=== PATIENT | female | born 1970 ===

== ENCOUNTER 2017-04-02 12:53 | Emergency (ER) | payer MEDICARE, MEDICAID ==
[2017-04-02 13:02] VITALS: BMI 39.4
[2017-04-02 13:06] VITALS: TEMP 98.2; O2SAT 98
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
--- NOTE | 2017-04-02 14:33 | RAD ---
PROCEDURE: Radiographs of the Lumbar Spine. HISTORY: back pain COMPARISON: No prior. FINDINGS: BONES: Chronic degenerative changes are seen in the superior end plate of L3 and L4. DISC SPACES: Disc space narrowing at L4-5 and L5-S1 with mild facet arthropathy OTHER FINDINGS: None. IMPRESSION: Mild degenerative changes. No acute findings
[2017-04-02 15:07] VITALS: BP 122/79; PULSE 67; RESP 18
== END 2017-04-02 15:10 | disposition home or self-care (01) ==
LOC: ED 12:53
DX: M54.9 Dorsalgia, unspecified (principal)
CPT/HCPCS: 72110; 96372; 99282; J1885

== ENCOUNTER 2017-06-29 12:21 | Emergency (ER) | payer OTHER ==
[2017-06-29 12:22] VITALS: BMI 39.4
[2017-06-29 13:56] VITALS: O2SAT 98
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
[2017-06-29 14:44] VITALS: BP 122/82; PULSE 70; RESP 16; TEMP 97.9
== END 2017-06-29 14:42 | disposition home or self-care (01) ==
LOC: ED 12:21
DX: M54.5 Low back pain (principal); I10 Essential (primary) hypertension; E03.9 Hypothyroidism, unspecified; Z88.0 Allergy status to penicillin

== ENCOUNTER 2017-07-14 08:33 | Emergency (ER) | payer MEDICARE, OTHER ==
[2017-07-14 08:33] VITALS: BMI 39.4
[2017-07-14 08:45] VITALS: BP 127/89; PULSE 82; RESP 16; TEMP 98; O2SAT 96
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
== END 2017-07-14 09:24 | disposition home or self-care (01) ==
LOC: ED 08:33
DX: S39.012A Strain of muscle, fascia and tendon of lower back, initial encounter (principal); X58.XXXA Exposure to other specified factors, initial encounter; I10 Essential (primary) hypertension; E03.9 Hypothyroidism, unspecified; Z88.0 Allergy status to penicillin
CPT/HCPCS: 96372; 99283; J1885

== ENCOUNTER 2017-12-27 12:14 | Emergency (ER) | payer MEDICARE, OTHER ==
[2017-12-27 12:22] VITALS: BMI 37.8
[2017-12-27] MEDS ORDERED: Albuterol-Ipratrop 3 mg / 0.5 (3 ml) UD IH STA (13:09)
--- NOTE | 2017-12-27 13:17 | ED PDOC ---
Arrival/HPI - General Chief Complaint: Respiratory Distress Time Seen by Provider: 12/27/17 12:30 Historian: Patient - History of Present Illness Narrative History of Present Illness (Text): you were treated in the ED today for having bronchitis like symptoms with nasal congestion, on prednisone/azithromycin day 4, but w persistent cough with associated difficulty breathing with cough but otherwise without any nausea/ vomiting/headache/dizziness/chest pain/abdomen pain/numbness/tingling/loss of limb function/pain with urination. Past Medical History - Provider Review Nursing Documentation Reviewed: Yes - Travel History Have you recently traveled outside [place] w/in the past 3 mons?: No - Infectious Disease Hx of Infectious Diseases: None - Cardiac Hx Cardiac Arrhythmia: Yes (Prolong QT) Hx Hypertension: Yes - Pulmonary Hx Asthma: Yes (LAST ATTACK LAST YEAR) Hx Bronchitis: Yes Hx Sleep Apnea: Yes - Neurological Hx Migraine: Yes - HEENT Hx HEENT Disorder: No - Renal Hx Renal Disorder: Yes Hx Kidney Stones: Yes - Endocrine/Metabolic Hx Hypothyroidism: Yes - Hematological/Oncological Hx Anemia: Yes - Integumentary Hx Dermatological Disorder: No - Musculoskeletal/Rheumatological Hx Arthritis: Yes Hx Fractures: Yes Hx Osteoporosis: Yes - Gastrointestinal Hx Gastritis: Yes - Genitourinary/Gynecological Hx Genitourinary Disorders: No - Psychiatric Hx Anxiety: Yes Hx Bipolar Disorder: Yes Hx Depression: Yes Hx Post Traumatic Stress Disorder: Yes Hx Substance Use: No - Surgical History Hx Tonsillectomy: Yes - Anesthesia Hx Anesthesia: Yes Hx Anesthesia Reactions: No Hx Malignant Hyperthermia: No - Suicidal Assessment Feels Threatened In Home Enviroment: No Family/Social History - Physician Review Nursing Documentation Reviewed: Yes Family/Social History: No Known Family HX Smoking Status: Never Smoked Hx Alcohol Use: No Hx Substance Use: No Allergies/Home Meds Allergies/Adverse Reactions: Allergies latex Allergy (Verified 12/27/17 12:16) RASH Penicillins Allergy (Verified 12/27/17 12:16) SWELLING Home Medications: Home Meds Medication Instructions Recorded Confirmed Gabapentin [Neurontin] 800 mg PO Q6 02/05/17 12/27/17 Levothyroxine [Synthroid] 225 mcg PO DAILY 02/05/17 12/27/17 Review of Systems - Review of Systems Constitutional: Normal Eyes: Normal ENT: Sinus Congestion Respiratory: SOB, Cough Cardiovascular: Normal Gastrointestinal: Normal Genitourinary Female: Normal Musculoskeletal: Normal Skin: Normal Neurological: Normal Endocrine: Normal Hemo/Lymphatic: Normal Psychiatric: Normal Physical Exam Vital Signs Reviewed: Yes Vital Signs Temp Pulse Resp BP Pulse Ox 12/27/17 12:20 99.6 F 94 H 17 141/95 H 99 Temperature: Afebrile Blood Pressure: Hypertensive Pulse: Regular Respiratory Rate: Normal Appearance: Positive for: Well-Appearing, Non-Toxic, Comfortable Pain Distress: None Mental Status: Positive for: Alert and Oriented X 3 - Systems Exam Head: Present: Atraumatic, Normocephalic Pupils: Present: PERRL Extroacular Muscles: Present: EOMI Conjunctiva: Present: Normal Ears: Present: Normal Mouth: Present: Moist Mucous Membranes Pharnyx: Present: Normal Nose (External): Present: Atraumatic Nose (Internal): Present: Boggy Neck: Present: Normal Range of Motion Respiratory/Chest: Present: Clear to Auscultation, Good Air Exchange Cardiovascular: Present: Regular Rate and Rhythm Abdomen: No: Tenderness, Distention, Normal Bowel Sounds, Peritoneal Signs, Rebound, Guarding, McBurney's Point Tender, Rovsing's Sign Present, Hernias, Feeding Tubes, Ostomy Tubes, Mass/Organomegaly, Scars, Other Back: Present: Normal Inspection Upper Extremity: Present: Normal Inspection Lower Extremity: Present: Normal Inspection Neurological: Present: GCS=15, CN II-XII Intact, Speech Normal, Motor Func Grossly Intact Skin: Present: Warm, Normal Color Psychiatric: Present: Alert, Oriented x 3, Normal Insight, Normal Concentration Medical Decision Making ED Course and Treatment: you were treated in the ED today for having bronchitis like symptoms with nasal congestion, on prednisone/azithromycin day 4, but w persistent cough with associated difficulty breathing with cough but otherwise without any nausea/ vomiting/headache/dizziness/chest pain/abdomen pain/numbness/tingling/loss of limb function/pain with urination/no thoughts to harm yourself or others or hallucinations/recent travel/prior blood clots/prior cancer/hormonal use. You were otherwise breathing easily, smiling and talking easily, good strength/ sensation, walking easily, clear lungs, no abdomen tenderness, nasal congestion , no fever temp 99.6, stable heart rate 94, stable breathing rate 17, excellent oxygen level 99% room air, elevated blood pressure 141/95 which we recommend repeat in 2-3 days primary care office to determine further treatment, urine test you stated total hysterectomy, influenza test negative, radiology chest xray Poor inspiration with low lung volumes, crowded bronchovascular markings and mild bibasilar atelectasis, motrin, duoneb, prednisone, observation done in the ED with improvement, had a long discussion and you refused lab tests/ECG/further observation in the ED and cautioned for complications but you stated you feel improved and came for treatment and will followup primary care, counselled to use humidified air daily and thus discharged home. 1. Recommend additional prednisone as directed for breathing relief. recommend inhaler treatments as directed. 2. Recommend follow-up primary care 2-3 days to review symptoms. 4. If any worsening pain, fever, chills, nausea, vomiting, difficulty breathing, numbness, loss of limb function , pain with urination or any medical condition then return to the ED. 12/27/17 14:18 Chest X-ray Television Schedule Coordinator : DR. Combs, Robbie GUTIERREZ HISTORY:47-year-old female with cough. COMPARISON:No prior studies available for comparison TECHNIQUE:Chest PA and lateral FINDINGS: LUNGS:Poor inspiration with low lung volumes, crowded bronchovascular markings and mild bibasilar atelectasis PLEURA:No significant pleural effusion identified. No pneumothorax apparent. CARDIOVASCULAR:Normal. OSSEOUS STRUCTURES:No significant abnormalities. VISUALIZED UPPER ABDOMEN:Normal. OTHER FINDINGS:None. IMPRESSION: Poor inspiration with low lung volumes, crowded bronchovascular markings and mild bibasilar atelectasis 12/27/17 14:26 12/27/17 14:35 Reassessment Condition: Re-examined, Improved - Lab Interpretations Lab Results: Lab Results 12/27/17 13:30: Influenza Typ A,B (EIA) Negative for flu a/b I have reviewed the lab results: Yes - RAD Interpretation Radiology Orders: 12/27/17 13:10 CHEST TWO VIEWS (PA/LAT) [RAD] Stat Senior Administrative Assistant: Radiologist (see mdm) - Medication Orders Current Medication Orders: Discontinued Medications Albuterol/Ipratropium (Duoneb 3 Mg/0.5 Mg (3 Ml) Ud) 3 ml IH STAT STA Stop: 12/27/17 13:10 Last Admin: 12/27/17 13:26 Dose: 3 ml Ibuprofen (Motrin Tab) 800 mg PO STAT STA Stop: 12/27/17 13:10 Last Admin: 12/27/17 13:26 Dose: 800 mg MAR Pain/Vitals Document 12/27/17 13:26 VIVIEN (Rec: 12/27/17 13:26 VIVIEN [id number]) Pain Reassessment Is This A Pain ReAssessment? No Sleep Is patient sleeping during reassessment? No Prednisone (Prednisone Tab) 60 mg PO STAT ONE Stop: 12/27/17 13:10 Last Admin: 12/27/17 13:26 Dose: 60 mg - Scribe Statement The provider has reviewed the documentation as recorded by the Deanna Gu Provider Scribe Attestation: All medical record entries made by the Scribe were at my direction and personally dictated by me. I have reviewed the chart and agree that the record accurately reflects my personal performance of the history, physical exam, medical decision making, and the department course for this patient. I have also personally directed, reviewed, and agree with the discharge instructions and disposition. Disposition/Present on Arrival - Present on Arrival Any Indicators Present on Arrival: No History of DVT/PE: No History of Uncontrolled Diabetes: No Urinary Catheter: No History of Decub. Ulcer: No History Surgical Site Infection Following: None - Disposition Have Diagnosis and Disposition been Completed?: Yes Diagnosis: Upper respiratory disease, Bronchitis Disposition: HOME/ ROUTINE Disposition Time: 14:28 Patient Plan: Discharge Condition: IMPROVED Discharge Instructions (ExitCare): Acute Bronchitis, Adult (DC) Additional Instructions: you were treated in the ED today for having bronchitis like symptoms with nasal congestion, on prednisone/azithromycin day 4, but w persistent cough with associated difficulty breathing with cough but otherwise without any nausea/ vomiting/headache/dizziness/chest pain/abdomen pain/numbness/tingling/loss of limb function/pain with urination/no thoughts to harm yourself or others or hallucinations/recent travel/prior blood clots/prior cancer/hormonal use. You were otherwise breathing easily, smiling and talking easily, good strength/ sensation, walking easily, clear lungs, no abdomen tenderness, nasal congestion , no fever temp 99.6, stable heart rate 94, stable breathing rate 17, excellent oxygen level 99% room air, elevated blood pressure 141/95 which we recommend repeat in 2-3 days primary care office to determine further treatment, urine test you stated total hysterectomy, influenza test negative, radiology chest xray Poor inspiration with low lung volumes, crowded bronchovascular markings and mild bibasilar atelectasis, motrin, duoneb, prednisone, observation done in the ED with improvement, had a long discussion and you refused lab tests/ECG/further observation in the ED and cautioned for complications but you stated you feel improved and came for treatment and will followup primary care, counselled to use humidified air daily and thus discharged home. 1. Recommend additional prednisone as directed for breathing relief. recommend inhaler treatments as directed. 2. Recommend follow-up primary care 2-3 days to review symptoms. 4. If any worsening pain, fever, chills, nausea, vomiting, difficulty breathing, numbness, loss of limb function , pain with urination or any medical condition then return to the ED. Prescriptions: Albuterol HFA [Ventolin HFA 90 mcg/actuation (8 g)] 2 puff IH [id number] PRN 5 Days #1 ea PRN Reason: breathing relief Fluticasone Nasal [Flonase] 1 spr NS DAILY PRN 5 Days #1 ea PRN Reason: nasal congestion relief predniSONE [Prednisone] See Taper PO DAILY #5 tab Referrals: Miladys Lawson MD [Primary Care Provider] - Follow up with primary Forms: [employer] (Hong Konger)
--- NOTE | 2017-12-27 14:10 | RAD ---
HISTORY: 47-year-old female with cough. COMPARISON: No prior studies available for comparison TECHNIQUE: Chest PA and lateral FINDINGS: LUNGS: Poor inspiration with low lung volumes, crowded bronchovascular markings and mild bibasilar atelectasis PLEURA: No significant pleural effusion identified. No pneumothorax apparent. CARDIOVASCULAR: Normal. OSSEOUS STRUCTURES: No significant abnormalities. VISUALIZED UPPER ABDOMEN: Normal. OTHER FINDINGS: None. IMPRESSION: Poor inspiration with low lung volumes, crowded bronchovascular markings and mild bibasilar atelectasis
[2017-12-27 14:31] VITALS: PULSE 78; RESP 18
[2017-12-27 14:55] VITALS: BP 132/79; TEMP 98.2; O2SAT 99
== END 2017-12-27 14:54 | disposition home or self-care (01) ==
LOC: ED 12:14
DX: J40 Bronchitis, not specified as acute or chronic (principal); J39.9 Disease of upper respiratory tract, unspecified

== ENCOUNTER 2018-03-31 16:36 | Emergency (ER) | payer MEDICARE, OTHER ==
[2018-03-31 16:36] VITALS: BMI 37.8
[2018-03-31] MEDS ORDERED: Lidocaine 5% Patch TD ONE (17:43)
[2018-03-31 17:47] VITALS: TEMP 99.3
[2018-03-31] MEDS ORDERED: Oxycodone/Acetaminophen 5/325 mg Tab PO STA (18:14)
--- NOTE | 2018-03-31 18:24 | ED PDOC ---
Arrival/HPI - General Chief Complaint: Back Pain Time Seen by Provider: 03/31/18 17:32 - History of Present Illness Narrative History of Present Illness (Text): 03/31/18 18:15 47 y/o F w/ h/o herniated disks and peripheral neuropathy presenting to the ED for persistent lower back pain. The patient states she fell on her back 2 days ago after chasing her dog. She lumbarsacral back pain worsened with movement and direct pressure. She reports worsening of the back pain with ambulation and minor relief after use of her gabapentin and flexaril. The patient states she had back pain like this before and reports this is worse in severity in comparison to previous episodes. The patient states she has a epidural procedure tomorrow. She denies chest pain, headache, nausea, emesis, fevers, chills, abdominal pain, weakness, numbness or tingling. Past Medical History - Provider Review Nursing Documentation Reviewed: Yes - Travel History Have you recently traveled outside [place] w/in the past 3 mons?: No - Infectious Disease Hx of Infectious Diseases: None - Reproductive Menopause: Yes - Cardiac Hx Cardiac Arrhythmia: Yes (Prolong QT) Hx Hypertension: Yes - Pulmonary Hx Asthma: Yes (LAST ATTACK LAST YEAR) Hx Bronchitis: Yes Hx Sleep Apnea: Yes - Neurological Hx Migraine: Yes - HEENT Hx HEENT Disorder: No - Renal Hx Renal Disorder: Yes Hx Kidney Stones: Yes - Endocrine/Metabolic Hx Hypothyroidism: Yes - Hematological/Oncological Hx Anemia: Yes - Integumentary Hx Dermatological Disorder: No - Musculoskeletal/Rheumatological Hx Arthritis: Yes Hx Back Pain: Yes Hx Fractures: Yes Hx Osteoporosis: Yes - Gastrointestinal Hx Gastritis: Yes - Genitourinary/Gynecological Hx Genitourinary Disorders: No - Psychiatric Hx Anxiety: Yes Hx Bipolar Disorder: Yes Hx Depression: Yes Hx Post Traumatic Stress Disorder: Yes Hx Substance Use: No - Surgical History Hx Tonsillectomy: Yes - Anesthesia Hx Anesthesia: Yes Hx Anesthesia Reactions: No Hx Malignant Hyperthermia: No - Suicidal Assessment Feels Threatened In Home Enviroment: No Family/Social History - Physician Review Nursing Documentation Reviewed: Yes Family/Social History: Unknown Family HX Smoking Status: Never Smoked Hx Alcohol Use: No Hx Substance Use: No Allergies/Home Meds Allergies/Adverse Reactions: Allergies latex Allergy (Verified 12/27/17 12:16) RASH Penicillins Allergy (Verified 12/27/17 12:16) SWELLING Home Medications: Home Meds Medication Instructions Recorded Confirmed Gabapentin [Neurontin] 800 mg PO Q6 02/05/17 03/31/18 Levothyroxine [Synthroid] 250 mcg PO DAILY 02/05/17 03/31/18 Albuterol HFA [Ventolin HFA 90 200 puff IH PRN PRN 03/31/18 03/31/18 mcg/actuation (8 g)] Fluticasone/Salmeterol 500/50 0 puff NEB DAILY 03/31/18 03/31/18 [Advair Diskus 500/50] Review of Systems - Physician Review All systems were reviewed & negative as marked: Yes - Review of Systems Musculoskeletal: Back Pain, Myalgias. absent: Neck Pain Physical Exam Vital Signs Temp Pulse Resp BP Pulse Ox 03/31/18 19:35 89 18 137/69 99 03/31/18 16:53 99.3 F 98 H 20 142/85 98 03/31/18 16:37 99.3 F 98 H 20 142/85 98 Temperature: Afebrile Blood Pressure: Normal Pulse: Regular Respiratory Rate: Normal Appearance: Positive for: Well-Appearing, Non-Toxic, Comfortable Pain Distress: Severe Mental Status: Positive for: Alert and Oriented X 3 - Systems Exam Head: Present: Atraumatic, Normocephalic Pupils: Present: PERRL Mouth: Present: Moist Mucous Membranes Neck: Present: Normal Range of Motion. No: Meningeal Signs, MIDLINE TENDERNESS Respiratory/Chest: Present: Clear to Auscultation, Good Air Exchange. No: Respiratory Distress Cardiovascular: Present: Regular Rate and Rhythm, Normal S1, S2 Abdomen: Present: Normal Bowel Sounds. No: Tenderness, Distention, Peritoneal Signs Back: Present: Midline Tenderness, Paraspinal Tenderness (pain wih palpation lumbosacral region). No: CVA Tenderness, Decubitus Ulcer Neurological: Present: GCS=15, CN II-XII Intact, Speech Normal, Gait Normal Medical Decision Making ED Course and Treatment: 03/31/18 19:30 Impression 47 y/o F w/ h/o osteoarthritis and herniated disks presenting with lower back pain Plan --Valium --Percocet --Reassess & disposition Progress Notes 03/31/18 19:32 Patient reassessed and feels complete resolution of symptoms. She is able to ambulate without difficulty. Scripts given. She will follow up with her PCP after her surgery tomorrow. She is ambulatory without assistance. She is stable for discharge. - Medication Orders Current Medication Orders: Discontinued Medications Diazepam (Valium) 5 mg PO ONCE ONE PRN Reason: Protocol Stop: 03/31/18 18:15 Last Admin: 03/31/18 18:49 Dose: 5 mg Lidocaine (Lidoderm) 1 ea TD ONCE ONE Stop: 04/01/18 17:44 Oxycodone/Acetaminophen (Percocet 5/325 Mg Tab) 1 tab PO STAT STA Stop: 03/31/18 18:15 Last Admin: 03/31/18 18:49 Dose: 1 tab MAR Pain Assessment Document 03/31/18 18:49 SRE (Rec: 03/31/18 18:49 SRE [id number]) Pain Reassessment Is this a pain reassessment? Yes Sleep Is patient sleeping during reassessment? No Presence of Pain Presence of Pain Yes Pain Scale Used Pain Scale Used Numeric Location Pain Location Body Site Back Disposition/Present on Arrival - Present on Arrival Any Indicators Present on Arrival: No History of DVT/PE: No History of Uncontrolled Diabetes: No Urinary Catheter: No History of Decub. Ulcer: No History Surgical Site Infection Following: None - Disposition Have Diagnosis and Disposition been Completed?: Yes Diagnosis: Back pain Disposition: HOME/ ROUTINE Disposition Time: 19:28 Patient Plan: Discharge Condition: IMPROVED Discharge Instructions (ExitCare): Upper Back Pain (DC) Prescriptions: oxyCODONE/Acetaminophen [Percocet 5/325 mg Tab] 1 ea PO PRN PRN 3 Days #4 tab PRN Reason: Pain, Severe (8-10) Forms: [employer] (Uzbek)
[2018-03-31 19:36] VITALS: BP 137/69; PULSE 89; RESP 18; O2SAT 99
[2018-04-01] MEDS ORDERED: Lidocaine 5% Patch TD ONE (17:43)
== END 2018-03-31 19:35 | disposition home or self-care (01) ==
LOC: ED 16:36
DX: M54.5 Low back pain (principal); I10 Essential (primary) hypertension; E03.9 Hypothyroidism, unspecified; M81.0 Age-related osteoporosis without current pathological fracture

== ENCOUNTER 2018-05-08 07:53 | Day surgery (SDC) | payer MEDICARE, OTHER ==
[2018-05-08 08:27] VITALS: RESP 16
[2018-05-08] MEDS ORDERED: Propofol 10 mg/ml Inj (20 ML) ONE (08:52)
[2018-05-08] MEDS ORDERED: Sodium Chloride 0.9% 1,000 ML IV SCH (09:30)
[2018-05-08 12:08] VITALS: BP 101/72; PULSE 66; TEMP 97.7; O2SAT 99
== END 2018-05-08 10:50 | disposition home or self-care (01) ==
LOC: ENDO 07:53
PROVIDERS: ATTEND Internal Medicine Gastroenterology
DX: R13.10 Dysphagia, unspecified (principal); K29.70 Gastritis, unspecified, without bleeding
CPT/HCPCS: 43239; 88305; 88342; J2001; J2704; J7030; J7040

== ENCOUNTER 2018-05-22 08:59 | Day surgery (SDC) | payer MEDICARE, OTHER ==
[2018-05-22] MEDS ORDERED: Propofol 10 mg/ml Inj (20 ML) ONE (09:42)
[2018-05-22] MEDS ORDERED: Midazolam 2 MG/2 ML VIAL ONE (09:54)
[2018-05-22] MEDS ORDERED: Sodium Chloride 0.9% 1,000 ML IV SCH (10:45)
[2018-05-22 11:25] VITALS: RESP 16; TEMP 97.6; O2SAT 96
[2018-05-22 13:51] VITALS: BP 119/74; PULSE 65
== END 2018-05-22 12:35 | disposition home or self-care (01) ==
LOC: ENDO 08:59
PROVIDERS: ATTEND Internal Medicine Gastroenterology
DX: R13.10 Dysphagia, unspecified (principal); D12.0 Benign neoplasm of cecum; D12.5 Benign neoplasm of sigmoid colon; D12.3 Benign neoplasm of transverse colon; K57.30 Diverticulosis of large intestine without perforation or abscess without bleeding; K64.1 Second degree hemorrhoids; E03.9 Hypothyroidism, unspecified; E66.9 Obesity, unspecified; Z68.39 Body mass index [BMI] 39.0-39.9, adult; G47.30 Sleep apnea, unspecified; J44.9 Chronic obstructive pulmonary disease, unspecified; K59.00 Constipation, unspecified; Z87.891 Personal history of nicotine dependence; Z88.0 Allergy status to penicillin; Z91.040 Latex allergy status
CPT/HCPCS: 45380; 88305; J2001; J2250; J2704; J7030; J7040

== ENCOUNTER 2018-10-23 07:10 | Emergency (ER) | payer MEDICARE, OTHER ==
[2018-10-23 07:10] VITALS: BMI 37.8
[2018-10-23] MEDS ORDERED: Lidocaine 5% Patch TD STA (07:28)
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
[2018-10-23 09:27] VITALS: BP 112/62; PULSE 79; RESP 16; O2SAT 99
[2018-10-23 09:29] VITALS: TEMP 97.8
== END 2018-10-23 09:28 | disposition home or self-care (01) ==
LOC: ED 07:10
DX: M54.5 Low back pain (principal); G62.9 Polyneuropathy, unspecified; G47.30 Sleep apnea, unspecified; E03.9 Hypothyroidism, unspecified
CPT/HCPCS: 96372; 99283; J1885

== ENCOUNTER 2018-12-16 10:53 | Outpatient (CLI) | payer MEDICARE, OTHER | END 2018-12-16 10:54 | disposition home or self-care (01) | LOC: HLTHCOUN 10:53 ==

== ENCOUNTER 2018-12-20 18:11 | Emergency (ER) | payer MEDICARE, OTHER ==
[2018-12-20 18:32] VITALS: RESP 18; TEMP 99.5; O2SAT 100; BMI 37.5
[2018-12-20] MEDS ORDERED: Sodium Chloride 0.9% 1,000 ML IV STA (18:37)
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
[2018-12-20 19:18] LABS: ALB/GLOB RATIO 1.2 (1.1-1.8); ALBUMIN 4.4 g/dL (3.0-4.8); ALT/SGPT 17 U/L (7-56); AST/SGOT 17 U/L (14-36); BLOOD UREA NITROGEN 17 mg/dL (7-21); CALCIUM 9.3 mg/dL (8.4-10.5); GFR NON-AFRICAN AMERICAN > 60; LIPASE 89 U/L (23-300)
[2018-12-20 19:23] LABS: BASO # 0.01 K/mm3 (0.0-2.0); BASO % 0.1 % (0.0-3.0); EOS % 0.1 % (1.5-5.0); HEMOGLOBIN 15.3 g/dL (12.0-16.0); LYMPH # 0.8 (1.2-3.4); LYMPH % 9.7 % (22.0-35.0); MEAN CELL VOLUME 82.4 fl (80.0-105.0); MEAN CORPUSCULAR HEMOGLOBIN 28.3 pg (25.0-35.0); MEAN CORPUSCULAR HGB CONC 34.4 g/dl (31.0-37.0); MONO # 0.5 (0.1-0.6); MONO % 5.8 % (1.0-6.0); RBC 5.4 10^6/uL (3.5-6.1); RED CELL DISTRIBUTION WIDTH 13.3 % (11.5-14.5); WHITE BLOOD COUNT 8.2 10^3/uL (4.5-11.0)
[2018-12-20 19:33] VITALS: BP 115/71; PULSE 95
[2018-12-20 19:33] LABS: URINE BILIRUBIN NEGATIVE (NEGATIVE); URINE BLOOD SMALL (NEGATIVE); URINE GLUCOSE (UA) NEGATIVE (NEGATIVE); URINE LEUKOCYTE ESTERASE NEGATIVE Leu/uL (NEGATIVE); URINE PROTEIN NEGATIVE mg/dL (<30 mg/dL); URINE UROBILINOGEN 0.2 E.U./dL (<1 E.U./dL)
[2018-12-20 19:34] LABS: URINE APPEARANCE CLEAR (CLEAR); URINE COLOR YELLOW (YELLOW)
[2018-12-20 20:09] LABS: URINE BACTERIA SMALL /hpf
--- NOTE | 2018-12-20 20:30 | ED PDOC ---
Physical Exam Vital Signs Temp Pulse Resp BP Pulse Ox 12/20/18 19:33 95 H 18 115/71 100 12/20/18 18:24 99.5 F 114 H 18 125/60 100 Medical Decision Making ED Course and Treatment: 12/20/18 20:26 Impression: A 48 year old female who presents to the ED complaining of abdominal discomfort. Plan: -- Reassess and disposition Progress Notes: Patient endorsed to me by Dr. Pickering to undergo CAT scan study/admission. Patient presented with blood in stool and abdominal discomfort, according to Dr. Pickering.As per patient was guaic positive. According to patient, she has been seen prior for similar complaints, and have undergone studies negative for kidney stones. 12/20/18 20:33 Patient had refused to undergo additional testing/CT scan studies /hospital admission.Risks explained to the patient who states she has personal matters to tend to and wants to leave/follow up outpatient.Patient to sign out against medical advice.Of course patient is advised to return to the emergency room if any recurrent worsening symptoms. - Lab Interpretations Lab Results: Total Bilirubin 0.4 mg/dL (0.2-1.3) 12/20/18 18:26 AST 17 U/L (14-36) 12/20/18 18:26 ALT 17 U/L (7-56) 12/20/18 18:26 Alkaline Phosphatase 97 U/L (38-126) 12/20/18 18:26 Total Protein 8.0 g/dL (5.8-8.3) 12/20/18 18:26 Albumin 4.4 g/dL (3.0-4.8) 12/20/18 18:26 Globulin 3.5 gm/dL 12/20/18 18:26 Albumin/Globulin Ratio 1.2 (1.1-1.8) 12/20/18 18:26 Lipase 89 U/L (23-300) 12/20/18 18:26 Urine Color Yellow (YELLOW) 12/20/18 18:26 Urine Appearance Clear (CLEAR) 12/20/18 18:26 Urine pH 6.0 (4.7-8.0) 12/20/18 18:26 Ur Specific [place] 1.025 (1.005-1.035) 12/20/18 18:26 Urine Protein Negative mg/dL (<30 mg/dL) 12/20/18 18:26 Urine Glucose (UA) Negative mg/dL (NEGATIVE) 12/20/18 18:26 Urine Ketones Negative mg/dL (NEGATIVE) 12/20/18 18:26 Urine Blood Small (NEGATIVE) H 12/20/18 18:26 Urine Nitrate Negative (NEGATIVE) 12/20/18 18:26 Urine Bilirubin Negative (NEGATIVE) 12/20/18 18:26 Urine Urobilinogen 0.2 E.U./dL (<1 E.U./dL) 12/20/18 18:26 Ur Leukocyte Esterase Negative Lukas/uL (NEGATIVE) 12/20/18 18:26 Urine RBC 5 - 10 /hpf (0-2) H 12/20/18 18:26 Urine WBC 1 - 3 /hpf (0-6) 12/20/18 18:26 Ur Epithelial Cells 1 - 3 /hpf (0-5) 12/20/18 18:26 Urine Bacteria Small /hpf (NONE) 12/20/18 18:26 Urine Other Mucus /hpf 12/20/18 18:26 - Medication Orders Current Medication Orders: Discontinued Medications Famotidine (Pepcid) 20 mg IVP STAT STA Stop: 12/20/18 19:30 Last Admin: 12/20/18 19:38 Dose: 20 mg IVP Administration Document 12/20/18 19:38 MARY (Rec: 12/20/18 19:45 RG [id number]) Charges for Administration # of IVP Administrations 1 Sodium Chloride (Sodium Chloride 0.9%) 1,000 mls @ 999 mls/hr IV .Q1H1M STA Stop: 12/20/18 19:37 Last Admin: 12/20/18 18:49 Dose: 999 mls/hr eMAR Start Stop Document 12/20/18 18:49 LA (Rec: 12/20/18 18:49 LA [id number]) Intravenous Solution Start Date 12/20/18 Start Time 18:49 End Date 12/20/18 End time 19:50 Total Infusion Time 61 Pantoprazole Sodium (Protonix Inj) 80 mg IVP STAT STA Stop: 12/20/18 18:38 Last Admin: 12/20/18 18:49 Dose: 80 mg IVP Administration Document 12/20/18 18:49 LA (Rec: 12/20/18 18:49 LA [id number]) Charges for Administration # of IVP Administrations 1 Disposition/Present on Arrival - Present on Arrival Any Indicators Present on Arrival: No History of DVT/PE: No History of Uncontrolled Diabetes: No Urinary Catheter: No History of Decub. Ulcer: No History Surgical Site Infection Following: None - Disposition Have Diagnosis and Disposition been Completed?: Yes Diagnosis: Abdominal pain, Hematochezia Disposition: AGAINST MEDICAL ADVICE Disposition Time: 20:37 Condition: STABLE Referrals: PCP,NO [Primary Care Provider] - Follow up with primary Forms: [employer] (Telugu)
== END 2018-12-20 20:49 | disposition left against medical advice (07) ==
LOC: ED 18:11
DX: R10.9 Unspecified abdominal pain (principal); K92.1 Melena; E03.9 Hypothyroidism, unspecified; I10 Essential (primary) hypertension
CPT/HCPCS: 80053; 81001; 81025; 83690; 83735; 84100; 85025; 87086; 96361; 96374; 96375; 99285; C9113; J7030